=== PATIENT | male | born 1970 | race Caucasian/White ===

== ENCOUNTER → 2019-01-06 | Outpatient (CLI) | payer OTHER ==
[~2019-01-06] MED LIST: ALL300 PO; ALP5 PO; ALPR-429 PO; BUSP15TA69 PO; CIP500 PO; DES100PT PO; DIC10 PO; DOC100 PO; ESC10 PO; FLU44R IH; FLUT10SP NS; FLUT16SP20 NS; HCTZ25 PO; HYD2 PO; HYDR-2966 PO; HYDR2TAB42 PO; KET10 PO; LOSA100T62 PO; METH1TAB65 PO; METO25TA91 PO; NIFEDICAL PO; NIFS30 PO; PAN40 PO; PER PO; PRO25 PO; QUE100 PO; QUET150T3 PO; TAM4 PO; TIZ4 PO; TOLT4CAP13 PO
--- NOTE | 2019-01-06 14:02 | EKG ---
FACILITY: [facility] [place] PATIENT NAME: RACHELE NOLASCO : [id number] MR: [id number] V: [id number] EXAM DATE: ORDERING PHYSICIAN: FREDDIE MEAD TECHNOLOGIST: ALEJANDRO Test Reason : PRE OP Blood Pressure : / mmHG Vent. Rate : 091 BPM Atrial Rate : 091 BPM P-R Int : 140 ms QRS Dur : 118 ms QT Int : 372 ms P-R-T Axes : 069 075 065 degrees QTc Int : 457 ms Normal sinus rhythm Incomplete right bundle branch block Borderline ECG When compared with ECG of 29-DEC-2013 15:56, No significant change was found Confirmed by ROSELINE ROYAL ([id number]) on 01/07/2019 6:36:20 AM Referred By: ALYCE Confirmed By:ROSELINE ROYAL
[2019-01-06 14:11] LABS: PLATELET COUNT, AUTOMATED 251 K/uL (150-450)
== END ==
LOC: LAB 13:38
PROVIDERS: ATTEND Orthopaedic Surgery
DX: I45.10 Unspecified right bundle-branch block (principal)
CPT/HCPCS: 36415; 82310; 82374; 82435; 82565; 82947; 83036; 84132; 84295; 84520; 85025; 93005